=== PATIENT | male | born 1955 | race Caucasian/White ===

== ENCOUNTER 2020-01-20 23:02 | Emergency (ER) | payer OTHER ==
[~2020-01-20] VITALS: Ht 170.2 cm; Wt 74.8 kg
[~2020-01-20 23:02] MED LIST: ALBU90OI INH; ASPI325 PO; BENADRYL25 MG PO; BLOOD PRESSURE MED; Bactrim Ds Tab1 EACH PO; CEPH500 PO; CLON.2 PO; COLC.6 PO; CRUTCH4 USE; Cleocin HCl300 MG PO; DAILY VIT; ERYT333ERA PO; HYDACE5 PO; IBUP200; INDO50 PO; LORA2 PO; NAPR500 PO; Norco 5-325 Ta1 EACH PO; OXYACE5T PO; OXYC10TA19 PO; PENVK500 PO; PROCODE120 PO; PROM25 PO; Pepcid20 MG PO; Prednisone50 MG PO; RXLORA1 PO; SULTRIDS PO; Ultram50 MG PO; [UNRECOGNIZED DRUG - REMARK]
[2020-01-20] MEDS ORDERED: METH40 PO (23:32)
[2020-01-21] MEDS ORDERED: Prednisone50 MG PO (00:14)
[2020-01-21] MEDS ORDERED: Zithromax250 MG PO (00:14)
[2020-01-21] MEDS ORDERED: ALBU90OI INH (00:14)
== END 2020-01-21 00:25 | disposition home or self-care (01) ==
LOC: ER 23:02
DX: J45.909 Unspecified asthma, uncomplicated (principal); J18.9 Pneumonia, unspecified organism; I10 Essential (primary) hypertension; M06.9 Rheumatoid arthritis, unspecified; Z79.52 Long term (current) use of systemic steroids; Z79.899 Other long term (current) drug therapy; F17.200 Nicotine dependence, unspecified, uncomplicated
CPT/HCPCS: 71045; 93005; 93010; 94640; 99285-25; J1100

== ENCOUNTER 2021-05-20 10:47 | Emergency (ER) | payer OTHER ==
[~2021-05-20] VITALS: Ht 170.2 cm; Wt 95.2 kg
[~2021-05-20 10:47] MED LIST changes: -AMLODIPINE BESYL5 MG PO
[2021-05-20] MEDS ORDERED: AMLODIPINE BESYL5 MG PO (11:03)
[2021-05-20 12:32] LABS: Alanine Aminotransfer (ALT/SGP 22 U/L (12-78); Albumin, Blood 2.3 g/dL (3.4-5.0); Albumin/Globulin Ratio 0.5 (0.8-1.8); Alk Phos 74 U/L (50-136); Anion Gap 3 mmol/L (6-16); Aspartate Aminotrans (AST/SGOT 29 U/L (12-37); Bilirubin, Total 0.2 mg/dL (0.1-1.0); Blood Urea Nitrogen 20 mg/dL (8-24); Bun/Creatinine Ratio 17.1 (12.0-20.0); CO2, Blood 32 mmol/L (21-32); Calcium, Blood 8.6 mg/dL (8.5-10.1); Chloride, Blood 104 mmol/L (98-108); Creatinine, Blood 1.17 mg/dL (0.60-1.20); Globulin, Blood 4.3 g/dL (2.2-4.0); Glomerular Filtration Rate >60 (60-); Glucose, Blood 126 mg/dL (70-99); Potassium, Blood 4.4 mmol/L (3.5-5.5); Sodium, Blood 139 mmol/L (136-145); Total Protein, Blood 6.6 g/dL (6.4-8.2); Troponin I <0.015 ng/mL (0.000-0.040)
[2021-05-20 12:37] LABS: Phosphorus, Blood 3.7 mg/dL (2.5-4.9)
[2021-05-20] MEDS ORDERED: CEPH500 PO (15:21)
== END 2021-05-20 15:39 | disposition home or self-care (01) ==
LOC: ER 10:47
PROVIDERS: Physician Assistant
DX: I10 Essential (primary) hypertension (principal); J45.909 Unspecified asthma, uncomplicated; F17.200 Nicotine dependence, unspecified, uncomplicated; Z79.899 Other long term (current) drug therapy
CPT/HCPCS: 36415; 71260; 80053; 83735; 83880; 84100; 84484; 93005; 93010; 93971; 99284-25; Q9967

== ENCOUNTER → 2021-05-20 | Outpatient (CLI) | payer OTHER ==
[~2021-05-20] MED LIST changes: +AMLODIPINE BESYL5 MG PO; +METH40 PO; +Zithromax250 MG PO
[2021-05-20 10:54] LABS: BASOPHILS ABSOLUTE AUTO 0.04 K/mm3 (0.00-0.23); BASOPHILS PERCENT AUTO 1 % (0-2); EOSINOPHILS ABSOLUTE AUTO 0.24 K/mm3 (0.00-0.68); EOSINOPHILS PERCENT AUTO 3 % (0-6); Hematocrit 40.7 % (37.0-53.0); Hemoglobin 13.7 g/dL (13.5-17.5); IMMATURE GRAN ABSOLUTE AUTO 0.03 K/mm3 (0.00-0.10); IMMATURE GRAN PERCENT AUTO 0 % (0-1); LYMPHOCYTES PERCENT AUTO 19 % (21-46); MONOCYTES ABSOLUTE AUTO 0.61 K/mm3 (0.16-1.47); MONOCYTES PERCENT AUTO 8 % (4-13); Mean Corpuscular HGB 28.6 pg (26.0-34.0); Mean Corpuscular HGB Conc 33.7 g/dL (31.5-36.5); Mean Corpuscular Volume 85 fL (80-100); NEUTROPHILS ABSOLUTE AUTO 4.96 K/mm3 (1.96-9.15); NEUTROPHILS PERCENT AUTO 68 % (41-73); Platelet Count 240 K/mm3 (150-400); RDW Coefficient Variation 13.1 % (11.7-14.2); RDW Standard Deviation 40.7 fL (35.1-46.3); Red Blood Cell Count 4.79 M/mm3 (4.30-5.90); White Blood Cell Count 7.28 K/mm3 (4.00-11.30)
[2021-05-20 11:31] LABS: Alanine Aminotransfer (ALT/SGP 18 U/L (12-78); Albumin, Blood 2.4 g/dL (3.4-5.0); Albumin/Globulin Ratio 0.6 (0.8-1.8); Alk Phos 76 U/L (50-136); Anion Gap 5 mmol/L (6-16); Aspartate Aminotrans (AST/SGOT 26 U/L (12-37); Bilirubin, Total 0.2 mg/dL (0.1-1.0); Blood Urea Nitrogen 21 mg/dL (8-24); Bun/Creatinine Ratio 18.4 (12.0-20.0); CO2, Blood 30 mmol/L (21-32); Calcium, Blood 8.5 mg/dL (8.5-10.1); Chloride, Blood 104 mmol/L (98-108); Creatinine, Blood 1.14 mg/dL (0.60-1.20); Globulin, Blood 3.7 g/dL (2.2-4.0); Glomerular Filtration Rate >60 (60-); Glucose, Blood 114 mg/dL (70-99); Potassium, Blood 4.4 mmol/L (3.5-5.5); Sodium, Blood 139 mmol/L (136-145); Total Protein, Blood 6.1 g/dL (6.4-8.2); Triiodothyronine, Free 3.04 pg/mL (2.18-3.98); Troponin I <0.015 ng/mL (0.000-0.040)
== END ==
LOC: LAB 10:39 → LAB SHORT 10:39
DX: B18.2 Chronic viral hepatitis C (principal); I10 Essential (primary) hypertension
CPT/HCPCS: 80053; 83880; 84443; 84481; 84484; 85025; 85379

== ENCOUNTER 2021-07-28 14:53 | Inpatient (IN) | payer OTHER ==
[~2021-07-28] VITALS: Ht 172.7 cm; Wt 97.3 kg
[~2021-07-28 14:53] MED LIST changes: +AMLODIPINE BESYL5 MG PO
[2021-07-28 16:49] LABS: C-REACTIVE PROTEIN, EXT RANGE 16.8 mg/dL (0.000-0.300)
[2021-07-28 16:51] LABS: Albumin, Blood 1.9 g/dL (3.4-5.0); Albumin/Globulin Ratio 0.4 (0.8-1.8); Bilirubin, Total 0.3 mg/dL (0.1-1.0); Bun/Creatinine Ratio 14.1 (12.0-20.0); Calcium, Blood 8.6 mg/dL (8.5-10.1); Creatinine, Blood 1.28 mg/dL (0.60-1.20); Globulin, Blood 4.8 g/dL (2.2-4.0); Potassium, Blood 4.2 mmol/L (3.5-5.5); Total Protein, Blood 6.7 g/dL (6.4-8.2)
[2021-07-28 16:55] LABS: BASOPHILS ABSOLUTE AUTO 0.03 K/mm3 (0.00-0.23); BASOPHILS PERCENT AUTO 0 % (0-2); EOSINOPHILS ABSOLUTE AUTO 0.16 K/mm3 (0.00-0.68); EOSINOPHILS PERCENT AUTO 1 % (0-6); Hematocrit 36.5 % (37.0-53.0); Hemoglobin 12.5 g/dL (13.5-17.5); IMMATURE GRAN ABSOLUTE AUTO 0.07 K/mm3 (0.00-0.10); IMMATURE GRAN PERCENT AUTO 1 % (0-1); LYMPHOCYTES ABSOLUTE AUTO 1.16 K/mm3 (0.84-5.20); LYMPHOCYTES PERCENT AUTO 9 % (21-46); MONOCYTES ABSOLUTE AUTO 1.06 K/mm3 (0.16-1.47); MONOCYTES PERCENT AUTO 8 % (4-13); Mean Corpuscular HGB 28.5 pg (26.0-34.0); Mean Corpuscular HGB Conc 34.2 g/dL (31.5-36.5); Mean Corpuscular Volume 83 fL (80-100); NEUTROPHILS ABSOLUTE AUTO 10.41 K/mm3 (1.96-9.15); NEUTROPHILS PERCENT AUTO 81 % (41-73); RDW Coefficient Variation 13.5 % (11.7-14.2); RDW Standard Deviation 41.1 fL (35.1-46.3); Red Blood Cell Count 4.38 M/mm3 (4.30-5.90); White Blood Cell Count 12.89 K/mm3 (4.00-11.30)
[2021-07-28 17:01] LABS: Mean Platelet Volume 9.6 fL (9.1-12.4); Platelet Count 239 K/mm3 (150-400)
--- NOTE | 2021-07-29 04:01 | NUR ---
LORETTA WAS ADMITTED TO THE MEDICAL FLOOR LAST NIGHT FOR CELLULITIS. WHEN HE FIRTS GOT TO THE FLOOR HE COMPLAINED OF STOMACH DISCOMFORT, HE WAS ADMINISTERED ZOFRAN AND DR. MICHEL ORDERED PRN SIMETHICONE AND MIRALAX. HE STATED THAT THE ZOFRAN REALLY HELPED. HE WAS ADMINISTERED HYDRALAZINE BEFORE TRANSFER AND SPB WENT FROM 201 TO 177. HE RECEIVED HIS FIRST COURSE OF AB. SLEPT COMFORTABLY REMAINED STABLE DURING THE SHIFT
[2021-07-29 06:04] LABS: BASOPHILS ABSOLUTE AUTO 0.02 K/mm3 (0.00-0.23); BASOPHILS PERCENT AUTO 0 % (0-2); EOSINOPHILS ABSOLUTE AUTO 0.03 K/mm3 (0.00-0.68); EOSINOPHILS PERCENT AUTO 0 % (0-6); Hematocrit 35.3 % (37.0-53.0); Hemoglobin 11.8 g/dL (13.5-17.5); IMMATURE GRAN ABSOLUTE AUTO 0.09 K/mm3 (0.00-0.10); IMMATURE GRAN PERCENT AUTO 1 % (0-1); LYMPHOCYTES ABSOLUTE AUTO 0.88 K/mm3 (0.84-5.20); LYMPHOCYTES PERCENT AUTO 7 % (21-46); MONOCYTES PERCENT AUTO 8 % (4-13); Mean Corpuscular HGB 28.2 pg (26.0-34.0); Mean Corpuscular HGB Conc 33.4 g/dL (31.5-36.5); Mean Corpuscular Volume 84 fL (80-100); Mean Platelet Volume 9.2 fL (9.1-12.4); NEUTROPHILS ABSOLUTE AUTO 11.15 K/mm3 (1.96-9.15); NEUTROPHILS PERCENT AUTO 84 % (41-73); Platelet Count 252 K/mm3 (150-400); RDW Coefficient Variation 13.5 % (11.7-14.2); RDW Standard Deviation 41.8 fL (35.1-46.3); Red Blood Cell Count 4.18 M/mm3 (4.30-5.90); White Blood Cell Count 13.27 K/mm3 (4.00-11.30)
[2021-07-29 07:31] LABS: Albumin, Blood 2.1 g/dL (3.4-5.0); Albumin/Globulin Ratio 0.6 (0.8-1.8); Bilirubin, Total 0.3 mg/dL (0.1-1.0); Bun/Creatinine Ratio 14.5 (12.0-20.0); Calcium, Blood 8.3 mg/dL (8.5-10.1); Creatinine, Blood 1.24 mg/dL (0.60-1.20); Globulin, Blood 3.6 g/dL (2.2-4.0); Potassium, Blood 4.4 mmol/L (3.5-5.5); Total Protein, Blood 5.7 g/dL (6.4-8.2)
[2021-07-29 11:10] LABS: Influenza A, PCR NEGATIVE (NEGATIVE); Influenza B, PCR NEGATIVE (NEGATIVE); Resp Syncytial Virus, PCR NEGATIVE (NEGATIVE); SARS-Cov-2 (COVID-19) PCR, MMC NEGATIVE (NEGATIVE)
--- NOTE | 2021-07-29 11:20 | NUR ---
RHONCHI ASCULATED TO POSTERIOR BASES BILAT. BIOX 89-92%. PATIENT DENIES SOB. DR ARANA NOTIFIED. NEW ORDER FOR UDN.
--- NOTE | 2021-07-29 13:55 | NUR ---
SPOKE TO DIMAS MUNROE AND RECIEVED A VERBAL ORDER FOR A REGULAR DIET PER DR BANUELOS.
[2021-07-29] MEDS ORDERED: LOSA50 PO (14:21)
[2021-07-29] MEDS ORDERED: HYDCHL25 PO (14:22)
--- NOTE | 2021-07-29 16:46 | NUR ---
SHIFT SUMARY- PT AALERT AND ORIENTED, INDEPENDENT IN THE ROOM. PT HAS STATED PAIN BUT DECLINES PAIN MANAGEMENT MEDICATION SAYING IT IS NOT NEEDED. PT BP HAS BEEN ELEVATED INTO THE 160'S TODAY SPOKE TO DR BLUE PT PO LISINOPRIL STARTED THIS EVENING. AC/HS BG ADDED TO PT PLAN OF CARE, PT HAS A NEW Dx OF DM TYPE 2, PT IS AWARE, SPOKE TO HIM THIS MORNING. PT CURRENTLY LYING IN BED CALL LIGHT IN REACH, NO S&S OF DISTRESS NOTED AT THIS TIME WILL CTM.
--- NOTE | 2021-07-29 16:52 | NUR ---
SHIFT SUMMARY- PT WENT FOR A D&C OF THE LEFT THIGH AND GROIN. SURGICAL DRESSINGS IN PLACE C/D/I. PT STATED POST OP THAT HE FEELS SO MUCH BETTER SINCE THE SURGERY. NO C/O PAIN POST OP. PT HAS BEEN SLEEPING VERY SOUNDLY OFF AND ON SINCE THE PROCEDURE. VS HAVE REMAINED STABLE, Q4 FOR THE NEXT 24 HOURS. BG CHECKS DC'D WELL HUMALOG PT HAS NO Hx DIABETES, PER DR DENT. PT CURRENTLY IN BED SLEEPING, CALL LIGHT IN REACH, NO S&S OF DISTRESS NOTED AT THIS TIME WILL CTM.
--- NOTE | 2021-07-29 19:32 | NUR ---
PT C/O BURNING AT THE IV SITE, NO SIGN OF REDNESS, CURRENTLY INFUSING VANCO. PT STATED THE BURNING WAS NEXT TO THE IV SITE. NO REDNESS OR IRRITATION, IV PATENT. 10 MINUTES LATER WENT IN FOR BEDSID REPORT. PT NOW HAS REDNESS AND HIVES NEXT TO THE IV SITE AND TRAVELING UP THE ARM A LITTLE. STOPPED IV ABX INFUSION. CHECKED VITALS PT HAS A VEW SCORE OF 4 RESP RATE BP AND TEMP ALL MUCH HIGHER THAN PRIOR VS. TEMP 102-101.7 PT C/O SOB O2 SATS 91% ON 2L VIA NC PT WAS 91% ON ROOM AIR PRIOR TO THIS EVENT. CALLED RT TO GIVE PT HIS INHALER. ATTEMPTED TO CALL NIGHT HOSPITALIST NO ANSWER WILL REATTEMPT TO CALL AGAIN.
--- NOTE | 2021-07-29 19:41 | NUR ---
SPOKE TO NIGHT HOSPITALIST RECIEVED ORDER FOR 25 MG PO BENADRYL AND STOP THE VANCO AT THIS TIME. WILL PASS ON TO NIGHT RN TO GIVE.
--- NOTE | 2021-07-30 05:34 | NUR ---
INTERNATIONAL RELATIONS PROFESSOR SUMMARY PATIENT STARTED OF WITH REACTING TO VANCOMYCIN. THIS WAS STOPPED IMMEDIATELY. HIS V/S WERE CHECKED AND RECORDED. THE DAY SHIFT RN INFORMED THE DR. HE WAS GIVEN [place] PONCE DC'D. NO OTHER COMPLAINTS OVERNIGHT. HIS V/S REMAINED STABLE AFTERWARDS. WILL CONTINUE TO MONITOR HIM.
--- NOTE | 2021-07-30 09:18 | NUR ---
pt sitting on the side of the bed eating breakfast, a/ox3, pleasant and cooperative with care, follows commands well, states he has a h/a and his wound area is painful, lungs are clear t/o, resp even and unlabored, on r/a, no cough noted, hrr, edema noted to b/le, cap refill <3sec, iv site is swollen, and stinging when started abx, btx4, abd flat soft nontender, voids without diff, skin has large wound to r hip, scrotum, was surgically debreded yest, shanti waters, Dr. Walter was in to see him removed packing from wounds and wants him to shower. call light in reach, called charge nurse to place new iv. she is working on that now.
--- NOTE | 2021-07-30 15:14 | NUR ---
Pt arrived via gurney from ED, he was able to stand and ambulate to bed indep, a/ox2, but repeats himself, seems forgetful, follows commands well, denies pain, states his dizziness has passed, lungs are clear dim in bases, resp even and unlabored, no cough noted, hrr, 4+edema noted to b/l meli, he states they are chronically swollen, cap refill <3sec, vs stable, afebrile, iv site to rfa site is clear and patent, btx4, abd round firm, btx4, skin c/w/d, maew, shanti, call light in reach.
--- NOTE | 2021-07-30 18:37 | NUR ---
Pt took shower this afternoon, states it made him feel better, had a h/a, tylenol given with some relief, no further changes this shift. call light in reach.
--- NOTE | 2021-07-31 05:00 | NUR ---
PT REMAINS ALERT AND ORIENTED X4 THIS SHIFT, SLEPT FOR MOST OF THE NIGHT, MAKES NO COMPLAINTS AND IS IND IN ROOM. PO ABT'S THIS SHIFT WITH NO ADVERSE REACTIONS NOTED. STAFF WILL CONT TO MONITOR FOR CHANGES.
[2021-07-31] MEDS ORDERED: DOXY100 PO (11:37)
--- NOTE | 2021-07-31 13:17 | NUR ---
DISCHARGE NOTE D/C ORDERS RECIEVED AND REVIEWED. RX CALLED IN TO PT'S PHARMACY OF CHOICE AND PHARMACIST IN TO REVIEW NEW MED WITH PT. D/C ORDERS, EDUCATION AND F/U PLANS REVIEWED WITH PT, PT VERBALIZED UNDERSTANDING AND AGREED WITH PLAN. CONSTANTINE PPOWERGLIDE IV REMOVED INTACT, PT TOLERATED WELL. PT D/C HOME AND WAS ESCORTED OUT VIA W/C AND TRANSPORTED HOME VIA PRIVATE VEHICLE WITH FAMILY.
== END 2021-07-31 13:08 | disposition home or self-care (01) | DRG 854 ==
LOC: ER 14:53 → MEDS 14:54
PROVIDERS: Physician Assistant; Surgery; ADMIT Internal Medicine
PROC: 0V950ZZ Drainage of Scrotum, Open Approach (ICD-10-PCS; 2021-07-29)
PROC: 0Y960ZZ Drainage of Left Inguinal Region, Open Approach (ICD-10-PCS; 2021-07-29)
PROC: 0W9M0ZZ Drainage of Male Perineum, Open Approach (ICD-10-PCS; 2021-07-29)
PROC: 0J9M0ZZ Drainage of Left Upper Leg Subcutaneous Tissue and Fascia, Open Approach (ICD-10-PCS; principal; 2021-07-29 11:30)
DX: A41.01 Sepsis due to Methicillin susceptible Staphylococcus aureus (principal); L03.116 Cellulitis of left lower limb; L03.317 Cellulitis of buttock; L02.214 Cutaneous abscess of groin; L03.314 Cellulitis of groin; L02.416 Cutaneous abscess of left lower limb; N49.2 Inflammatory disorders of scrotum; Z20.822 Contact with and (suspected) exposure to COVID-19; M06.9 Rheumatoid arthritis, unspecified; M10.9 Gout, unspecified; G89.29 Other chronic pain; J45.909 Unspecified asthma, uncomplicated; I12.9 Hypertensive chronic kidney disease with stage 1 through stage 4 chronic kidney disease, or unspecified chronic kidney disease; N18.2 Chronic kidney disease, stage 2 (mild); E88.09 Other disorders of plasma-protein metabolism, not elsewhere classified; Z79.899 Other long term (current) drug therapy
CPT/HCPCS: 0241U; 36415; 73701; 76857; 80053; 82947; 83605; 85025; 86140; 87040; 87070; 87075; 87077; 87147; 87186; 87205; 94760; 96365; 96375; 99284-25; A9270; J0360; J0692; J0696; J1100; J2250; J2405; J2543; J2704; J3010; J3370; J7030; J7050; J7120; P9046; Q9967

== ENCOUNTER 2022-07-13 10:41 | Emergency (ER) | payer OTHER ==
[~2022-07-13] VITALS: Ht 165.1 cm; Wt 93.0 kg
[~2022-07-13 10:41] MED LIST changes: +DOXY100 PO; +HYDCHL25 PO; +LOSA50 PO; +MONDOXYNE NL100 MG PO
[2022-07-13 11:41] LABS: BASOPHILS ABSOLUTE AUTO 0.04 K/mm3 (0.00-0.23); BASOPHILS PERCENT AUTO 1 % (0-2); EOSINOPHILS ABSOLUTE AUTO 0.22 K/mm3 (0.00-0.68); EOSINOPHILS PERCENT AUTO 3 % (0-6); Hematocrit 36.2 % (37.0-53.0); Hemoglobin 12.2 g/dL (13.5-17.5); IMMATURE GRAN ABSOLUTE AUTO 0.03 K/mm3 (0.00-0.10); IMMATURE GRAN PERCENT AUTO 0 % (0-1); LYMPHOCYTES ABSOLUTE AUTO 1.33 K/mm3 (0.84-5.20); LYMPHOCYTES PERCENT AUTO 18 % (21-46); MONOCYTES PERCENT AUTO 7 % (4-13); Mean Corpuscular HGB Conc 33.7 g/dL (31.5-36.5); Mean Corpuscular Volume 83 fL (80-100); NEUTROPHILS ABSOLUTE AUTO 5.12 K/mm3 (1.96-9.15); NEUTROPHILS PERCENT AUTO 71 % (41-73); RDW Standard Deviation 42.2 fL (35.1-46.3); Red Blood Cell Count 4.35 M/mm3 (4.30-5.90); White Blood Cell Count 7.24 K/mm3 (4.00-11.30)
[2022-07-13 11:42] LABS: Mean Platelet Volume 9.9 fL (9.1-12.4)
[2022-07-13 12:05] LABS: Albumin, Blood 3.1 g/dL (3.4-5.0); Albumin/Globulin Ratio 0.7 (0.8-1.8); Bilirubin, Total 0.5 mg/dL (0.1-1.0); Bun/Creatinine Ratio 24.3 (12.0-20.0); Calcium, Blood 9.3 mg/dL (8.5-10.1); Creatinine, Blood 1.07 mg/dL (0.60-1.20); Globulin, Blood 4.4 g/dL (2.2-4.0); Potassium, Blood 4.4 mmol/L (3.5-5.5); Total Protein, Blood 7.5 g/dL (6.4-8.2)
[2022-07-13 12:13] LABS: Platelet Count 207 K/mm3 (150-400)
[2022-07-13] MEDS ORDERED: Isosorbide Mono30 MG PO (15:45)
[2022-07-13] MEDS ORDERED: CARV6.25 PO (15:45)
[2022-07-13] MEDS ORDERED: ATOR40TA PO (15:46)
== END 2022-07-13 18:21 | disposition home or self-care (01) ==
LOC: ER 10:41
PROVIDERS: Physician Assistant
DX: I10 Essential (primary) hypertension (principal); J45.909 Unspecified asthma, uncomplicated; F17.200 Nicotine dependence, unspecified, uncomplicated; Z88.1 Allergy status to other antibiotic agents; Z79.899 Other long term (current) drug therapy
CPT/HCPCS: 36415; 80053; 85025; 93005; 93010

== ENCOUNTER 2022-09-24 16:25 | Emergency (ER) | payer OTHER ==
[~2022-09-24] VITALS: Ht 167.6 cm; Wt 92.5 kg
[~2022-09-24 16:25] MED LIST changes: +ATOR40TA PO; +CARV6.25 PO; +Isosorbide Mono30 MG PO
[2022-09-24 17:03] LABS: BASOPHILS ABSOLUTE AUTO 0.05 K/mm3 (0.00-0.23); BASOPHILS PERCENT AUTO 1 % (0-2); EOSINOPHILS PERCENT AUTO 3 % (0-6); Hematocrit 38.3 % (37.0-53.0); Hemoglobin 13.3 g/dL (13.5-17.5); IMMATURE GRAN ABSOLUTE AUTO 0.04 K/mm3 (0.00-0.10); IMMATURE GRAN PERCENT AUTO 1 % (0-1); LYMPHOCYTES ABSOLUTE AUTO 1.27 K/mm3 (0.84-5.20); LYMPHOCYTES PERCENT AUTO 18 % (21-46); MONOCYTES ABSOLUTE AUTO 0.45 K/mm3 (0.16-1.47); MONOCYTES PERCENT AUTO 6 % (4-13); Mean Corpuscular HGB Conc 34.7 g/dL (31.5-36.5); Mean Corpuscular Volume 81 fL (80-100); Mean Platelet Volume 8.8 fL (9.1-12.4); NEUTROPHILS ABSOLUTE AUTO 5.06 K/mm3 (1.96-9.15); NEUTROPHILS PERCENT AUTO 72 % (41-73); Platelet Count 188 K/mm3 (150-400); RDW Coefficient Variation 13.6 % (11.7-14.2); RDW Standard Deviation 40.1 fL (35.1-46.3); Red Blood Cell Count 4.75 M/mm3 (4.30-5.90); White Blood Cell Count 7.07 K/mm3 (4.00-11.30)
[2022-09-24 17:23] LABS: Albumin, Blood 3.4 g/dL (3.4-5.0); Albumin/Globulin Ratio 0.8 (0.8-1.8); Bilirubin, Total 0.7 mg/dL (0.1-1.0); Bun/Creatinine Ratio 24.8 (12.0-20.0); Calcium, Blood 9.4 mg/dL (8.5-10.1); Creatinine, Blood 1.17 mg/dL (0.60-1.20); Globulin, Blood 4.2 g/dL (2.2-4.0); Potassium, Blood 5.4 mmol/L (3.5-5.5); Total Protein, Blood 7.6 g/dL (6.4-8.2)
[2022-09-24 18:16] LABS: Source, Urine Clean Catch
[2022-09-24 18:30] LABS: Appearance, Urine Clear (Clear); Bilirubin, Urine Neg (Neg); Blood, Urine 2+ (Neg); Color, Urine Yellow (P-Yellow); Glucose Qualitative, Urine Neg (Neg); Ketones, Urine Neg (Neg); Leukocyte Esterase, Urine Neg (Neg); Nitrite, Urine Neg (Neg); Protein, Urine 4+ (Neg); Urobilinogen, Urine NORM (Normal)
[2022-09-24 18:53] LABS: Bacteria Few /hpf; Squamous Epithelial Cells Rare /hpf (Few); White Blood Cells, Urine 0-2 /hpf (0-5)
[2022-09-24] MEDS ORDERED: CARVEDILOL6.25 MG PO (19:03)
[2022-09-24] MEDS ORDERED: Prinivil10 MG PO (19:03)
[2022-09-24] MEDS ORDERED: CATAPRES0.1 MG PO (19:04)
[2022-09-24] MEDS ORDERED: MIRALAX17 GM PO (21:43)
[2022-09-24] MEDS ORDERED: BISA5EC PO (21:43)
== END 2022-09-24 22:11 | disposition home or self-care (01) ==
LOC: ER 16:25
PROVIDERS: Student in an Organized Health Care Education/Training Program
DX: I10 Essential (primary) hypertension (principal); R14.0 Abdominal distension (gaseous); K59.00 Constipation, unspecified; T78.3XXA Angioneurotic edema, initial encounter; Z79.899 Other long term (current) drug therapy; Z88.1 Allergy status to other antibiotic agents; Z87.891 Personal history of nicotine dependence
CPT/HCPCS: 36415; 74177; 80053; 81001; 84484; 85025; A9270; Q9967

== ENCOUNTER 2023-07-13 20:51 | Emergency (ER) | payer MEDICARE, OTHER ==
[~2023-07-13] VITALS: Ht 170.2 cm; Wt 89.8 kg
[~2023-07-13 20:51] MED LIST changes: +BISA5EC PO; +CARVEDILOL6.25 MG PO; +CATAPRES0.1 MG PO; +MIRALAX17 GM PO; +Prinivil10 MG PO
[2023-07-13] MEDS ORDERED: FentaNYL Citrate 50 MCG/ML 2 ML Injection IV ONE (21:15)
[2023-07-13] MEDS ORDERED: Aspir 8181 MG PO (21:20)
[2023-07-13] MEDS ORDERED: AMLO5 (21:21)
[2023-07-13] MEDS ORDERED: ONDA4SO (21:21)
[2023-07-13] MEDS ORDERED: HYDRA25 (21:22)
[2023-07-13] MEDS ORDERED: ALLOPURINOL100 M1 (21:23)
[2023-07-13] MEDS ORDERED: SPIR25 (21:24)
[2023-07-13] MEDS ORDERED: NITR.4SL (21:25)
[2023-07-13] MEDS ORDERED: LOSA25 (21:25)
[2023-07-13 21:28] LABS: BASOPHILS ABSOLUTE AUTO 0.04 K/mm3 (0.00-0.23); BASOPHILS PERCENT AUTO 1 % (0-2); EOSINOPHILS ABSOLUTE AUTO 0.14 K/mm3 (0.00-0.68); EOSINOPHILS PERCENT AUTO 2 % (0-6); Hematocrit 36.7 % (37.0-53.0); Hemoglobin 12.8 g/dL (13.5-17.5); IMMATURE GRAN ABSOLUTE AUTO 0.02 K/mm3 (0.00-0.10); IMMATURE GRAN PERCENT AUTO 0 % (0-1); LYMPHOCYTES ABSOLUTE AUTO 1.15 K/mm3 (0.84-5.20); LYMPHOCYTES PERCENT AUTO 19 % (21-46); MONOCYTES ABSOLUTE AUTO 0.39 K/mm3 (0.16-1.47); MONOCYTES PERCENT AUTO 6 % (4-13); Mean Corpuscular HGB 28.6 pg (26.0-34.0); Mean Corpuscular HGB Conc 34.9 g/dL (31.5-36.5); Mean Corpuscular Volume 82 fL (80-100); Mean Platelet Volume 8.9 fL (9.1-12.4); NEUTROPHILS ABSOLUTE AUTO 4.34 K/mm3 (1.96-9.15); NEUTROPHILS PERCENT AUTO 71 % (41-73); Platelet Count 217 K/mm3 (150-400); RDW Coefficient Variation 13.2 % (11.7-14.2); RDW Standard Deviation 39.4 fL (35.1-46.3); Red Blood Cell Count 4.47 M/mm3 (4.30-5.90); White Blood Cell Count 6.08 K/mm3 (4.00-11.30)
[2023-07-13 21:50] LABS: Albumin/Globulin Ratio 0.8 (0.8-1.8); Bilirubin, Total 0.3 mg/dL (0.1-1.0); Bun/Creatinine Ratio 21.5 (12.0-20.0); Calcium, Blood 9.1 mg/dL (8.5-10.1); Creatinine, Blood 1.44 mg/dL (0.60-1.20); Potassium, Blood 4.2 mmol/L (3.5-5.5)
[2023-07-13 23:53] VITALS: BP 153/83
== END 2023-07-13 23:54 | disposition home or self-care (01) ==
LOC: ER 20:51
PROVIDERS: Student in an Organized Health Care Education/Training Program
DX: K52.9 Noninfective gastroenteritis and colitis, unspecified (principal); I10 Essential (primary) hypertension; J45.909 Unspecified asthma, uncomplicated; M06.9 Rheumatoid arthritis, unspecified; F17.200 Nicotine dependence, unspecified, uncomplicated; Z88.1 Allergy status to other antibiotic agents; Z79.899 Other long term (current) drug therapy; Z79.82 Long term (current) use of aspirin
CPT/HCPCS: 74177; 80053; 83690; 85025; 93005; 93010; 96374; 99285-25; J3010; Q9967

== ENCOUNTER → 2023-09-30 | Outpatient (CLI) | payer MEDICARE, OTHER ==
[~2023-09-30] MED LIST changes: +ALLOPURINOL100 M1; +AMLO5; +Aspir 8181 MG PO; +HYDRA25; +LOSA25; +NITR.4SL; +ONDA4SO; +SPIR25
[2023-09-30 19:17] LABS: Creatinine Urine 50.9 mg/dL (27.00-270.00); Protein, Urine Quantitative 128.7 mg/dL (0.0-11.9)
== END | disposition home or self-care (01) ==
LOC: LAB SHORT 16:12 → LAB 16:12
PROVIDERS: Internal Medicine Nephrology
DX: N18.30 Chronic kidney disease, stage 3 unspecified (principal); D63.1 Anemia in chronic kidney disease; E55.9 Vitamin D deficiency, unspecified; N25.81 Secondary hyperparathyroidism of renal origin; E78.00 Pure hypercholesterolemia, unspecified; G60.9 Hereditary and idiopathic neuropathy, unspecified; D51.8 Other vitamin B12 deficiency anemias; D50.9 Iron deficiency anemia, unspecified; R76.9 Abnormal immunological finding in serum, unspecified; R94.5 Abnormal results of liver function studies; R94.6 Abnormal results of thyroid function studies
CPT/HCPCS: 81050; 82043; 82570; 84156

== ENCOUNTER 2025-04-06 03:35 | Emergency (ER) | payer MEDICARE, OTHER ==
[~2025-04-06] VITALS: Ht 167.6 cm; Wt 90.7 kg
[2025-04-06 04:24] LABS: BASOPHILS ABSOLUTE AUTO 0.04 K/mm3 (0.00-0.23); BASOPHILS PERCENT AUTO 1 % (0-2); EOSINOPHILS ABSOLUTE AUTO 0.36 K/mm3 (0.00-0.68); EOSINOPHILS PERCENT AUTO 6 % (0-6); Hematocrit 39.2 % (37.0-53.0); Hemoglobin 13.0 g/dL (13.5-17.5); IMMATURE GRAN ABSOLUTE AUTO 0.06 K/mm3 (0.00-0.10); IMMATURE GRAN PERCENT AUTO 1 % (0-1); LYMPHOCYTES ABSOLUTE AUTO 1.59 K/mm3 (0.84-5.20); LYMPHOCYTES PERCENT AUTO 25 % (21-46); MONOCYTES ABSOLUTE AUTO 0.61 K/mm3 (0.16-1.47); MONOCYTES PERCENT AUTO 10 % (4-13); Mean Corpuscular HGB Conc 33.2 g/dL (31.5-36.5); Mean Corpuscular Volume 88 fL (80-100); NEUTROPHILS ABSOLUTE AUTO 3.64 K/mm3 (1.96-9.15); NEUTROPHILS PERCENT AUTO 58 % (41-73); NRBC ABSOLUTE 0.00 K/mm3 (0.00-0.02); NRBC Auto 0.0 /100 WBC (0.0-0.2); Platelet Count 178 K/mm3 (150-400); RDW Coefficient Variation 13.4 % (11.7-14.2); RDW Standard Deviation 43.1 fL (35.1-46.3)
[2025-04-06 04:44] LABS: Alanine Aminotransfer (ALT/SGP 22.0 U/L (12-78); Albumin, Blood 3.3 g/dL (3.4-5.0); Albumin/Globulin Ratio 0.8 (0.8-1.8); Anion Gap 7.0 mmol/L (3-11); Aspartate Aminotrans (AST/SGOT 26.0 U/L (12-37); Bilirubin, Total 0.4 mg/dL (0.1-1.0); Blood Urea Nitrogen 25.0 mg/dL (8-24); CO2, Blood 31.0 mmol/L (21-32); Calcium, Blood 8.5 mg/dL (8.5-10.1); Chloride, Blood 103.0 mmol/L (98-108); Creatinine, Blood 1.44 mg/dL (0.60-1.20); Globulin, Blood 4.1 g/dL (2.2-4.0); Glucose, Blood 100.0 mg/dL (70-99); Potassium, Blood 4.5 mmol/L (3.5-5.5); Sodium, Blood 136.0 mmol/L (136-145); Total Protein, Blood 7.4 g/dL (6.4-8.2)
[2025-04-06 05:00] VITALS: BP 167/84
== END 2025-04-06 05:06 | disposition home or self-care (01) ==
LOC: ER 03:35
PROVIDERS: Emergency Medicine
DX: I95.9 Hypotension, unspecified (principal); T50.905A Adverse effect of unspecified drugs, medicaments and biological substances, initial encounter; R51.9 Headache, unspecified; R79.89 Other specified abnormal findings of blood chemistry; M06.9 Rheumatoid arthritis, unspecified; I10 Essential (primary) hypertension; F17.200 Nicotine dependence, unspecified, uncomplicated; F19.11 Other psychoactive substance abuse, in remission; Z88.1 Allergy status to other antibiotic agents; Z79.899 Other long term (current) drug therapy
CPT/HCPCS: 71045; 80053; 84484; 85025; 93005; 93010; 99284-25